=== PATIENT | female | born 1960 | race Caucasian/White ===

== ENCOUNTER 2020-06-06 07:59 | Day surgery (SDC) | payer OTHER ==
[2020-06-03 10:36] LABS: HEMOGLOBIN 13.4 g/dL (12.0-15.5); MEAN CORPUSCULAR HEMOGLOBIN 29.1 pg (27.0-33.4); MEAN CORPUSCULAR HGB CONC 34.4 g/dL (32.0-36.0); MEAN CORPUSCULAR VOLUME 85 fl (80-97); PLATELET COUNT 278 10^3/uL (150-450); RED BLOOD COUNT 4.62 10^6/uL (3.72-5.28); RED CELL DISTRIBUTION WIDTH 13.8 % (11.5-14.0); WHITE BLOOD COUNT 7.2 10^3/uL (4.0-10.5)
[2020-06-03 10:44] LABS: APPEARANCE,URINE CLEAR; BILIRUBIN,URINE NEGATIVE (NEGATIVE); COLOR,URINE YELLOW; GLUCOSE, URINE NEGATIVE (NEGATIVE); KETONES,URINE NEGATIVE (NEGATIVE); LEUKOCYTE ESTERASE,URINE NEGATIVE (NEGATIVE); NITRITE,URINE NEGATIVE (NEGATIVE); PROTEIN,URINE NEGATIVE (NEGATIVE); URINE SPECIFIC GRAVITY 1.008; UROBILINOGEN,URINE NEGATIVE mg/dL (<2.0)
[~2020-06-06 07:59] MED LIST: FENTANYL CITRATE INJ/PF 100 MCG/2 ML AMPUL ONE; MIDAZOLAM 2 MG/2 ML INJ ONE; ONDANSETRON HCL INJ/PF 4 MG/2 ML SDV ONE; PROPOFOL INJ 200 MG/20 ML VIAL IV ONE
[2020-06-06] MEDS ORDERED: DIPHENHYDRAMINE HCL 50 MG/ML VIAL IV PRN (10:01)
[2020-06-06] MEDS ORDERED: MORPHINE SULFATE 10 MG/ML INJ IV PRN (10:01)
[2020-06-06] MEDS ORDERED: MEPERIDINE HCL/PF INJ 25 MG/1 ML DISP.SYRIN IV PRN (10:01)
[2020-06-06] MEDS ORDERED: PROMETHAZINE HCL INJ 25 MG/1 ML VIAL IV PRN (10:01)
[2020-06-06] MEDS ORDERED: FENTANYL CITRATE INJ/PF 100 MCG/2 ML AMPUL IV PRN ×3 (10:01)
--- NOTE | 2020-06-06 11:35 | Operative Report ---
Operative Report DATE OF SURGERY: 06/06/20 PREOPERATIVE DIAGNOSIS: Postmenopausal bleeding. Cervical stenosis POSTOPERATIVE DIAGNOSIS: same as above plus. Endometrial polyp. Fibroid OPERATION: Dilation and curettage, hysteroscopy, myosure SURGEON: JAISON DUMONT ANESTHESIA: GA TISSUE REMOVED OR ALTERED: Endometrial curetting, fibroid and polyp tissue COMPLICATIONS: None ESTIMATED BLOOD LOSS: 15 ml INTRAOPERATIVE FINDINGS: Cervix appeared grossly normal. Minimal difficulty with dilation. Endometrial cavity noted with both ostia identified ,a poylp and a mass which appeared to be a submucosal fibroid PROCEDURE: IV fluids: Crystalloid IV fluids per anesthesia record UOP: 200cc clear yellow urine drained from bladder prior to procedure Disposition: To recovery room in stable condition Description of the procedure: The patient was taken to the operating room where monitored anesthesia was administered and found to be adequate. She was then placed in the dorsol lithotomy position and prepped and draped in the usual sterile fashion. A timeout was taken. Bladder was emptied. A weighted speculum and barry retractor were placed in the vagina and the cervix was brought into good view. A single tooth tenactulm was used to grasp the anterior lip of the cervix and the cervix was serially dilated. The uterus sounded to approximately 7 cm. The hysteroscope was then inserted and using a saline distention medium the uterine cavity was inspected. Pictures were obtained. A small polyp and a large submucosal fibroid was noted filling the endometrial cavity. At this point the myosure was inserted and the polyp was removed entirely. The fibroid was then removed to the level of the endometrial cavity. Post removal pictures were taken. The hysteroscope was withdrawn. The procedure was then terminated all instrument to remove the patient's vagina. The patient tolerated the procedure well all instrument sponge and needle counts were correct x2 for the procedure she will proceed to recovery room in stable condition
--- NOTE | 2020-06-06 11:46 | Discharge Summary ---
Discharge Summary (SDC) - Discharge Final Diagnosis: Post menopaue bleeding, uterine fibroid, submucosal and polyp in uterine cavit Date of Surgery: 06/06/20 Condition: Stable Treatment or Instructions: Resume regular diet as tolerating Encourgage walking as tolerated. Expect vaginal discharge including bleeding for first week Nothing in the vagina for 2 weeks May shower but no tub baths for 2 weeks Prescriptions: Ibuprofen [Ibu] 800 mg PO Q8 10 Days #20 tablet Hydrocodone/Acetaminophen [[place] 5-325 mg Tablet] 1 tab PO Q6HP PRN 3 Days #8 tablet PRN Reason: Referrals: SHARON BROWN MD [Primary Care Provider] - Respiratory Treatments at Home: Deep Breathing/Coughing Discharge Activity: Activity As Tolerated, No Driving - until not taking narcotic prescripton, Pelvic Rest, No tub bath, Walk Frequently Home Care Assistance: None Needed Report the Following to Your Physician Immediately: Shortness of Breath, Vomiting, Increase in Pain, Fever over 101 Degrees, Drainage-Foul Smelling, Increased Vaginal Bleed, Wheezing, Seizure, IV Site Infection Signs
[2020-06-06] MEDS ORDERED: RINGERS SOLUTION,LACTATED 1,000 ML IV PRN (11:50)
[2020-06-06] MEDS ORDERED: IBUPROFEN 800 MG TABLET PO PRN (11:50)
[2020-06-06] MEDS ORDERED: KETOROLAC TROMETHAMINE INJ/PF 30 MG/1 ML SDV IV PRN (11:50)
[2020-06-06] MEDS ORDERED: OXYCODONE-ACETAMINOPHEN 5-325 MG TABLET PO PRN ×2 (11:50)
[2020-06-06] MEDS: MEPERIDINE HCL/PF INJ 25 MG/1 ML DISP.SYRIN ONE ×2 (11:51→11:56)
[2020-06-06] MEDS ORDERED: OXYCODONE-ACETAMINOPHEN 5-325 MG TABLET ONE (12:33)
[2020-06-06 13:51] VITALS: BP 130/60
== END 2020-06-06 13:30 | disposition home or self-care (01) ==
LOC: OROUT 07:59
PROVIDERS: ATTEND Obstetrics & Gynecology
DX: N88.2 Stricture and stenosis of cervix uteri (principal); D25.0 Submucous leiomyoma of uterus; N95.0 Postmenopausal bleeding; I10 Essential (primary) hypertension; Z79.84 Long term (current) use of oral hypoglycemic drugs; Z79.899 Other long term (current) drug therapy; E11.9 Type 2 diabetes mellitus without complications; K21.9 Gastro-esophageal reflux disease without esophagitis; Z03.818 Encounter for observation for suspected exposure to other biological agents ruled out
CPT/HCPCS: 36415; 82962; 85027; 87635; 81001; 88305 ×2; 00952; 58558; J2250; J3010; J2175; J2405; J2704; C9803; 952